=== PATIENT | female | born 1960 | race Caucasian/White ===

== ENCOUNTER → 2017-09-27 | Outpatient (CLI) | payer MEDICARE, MEDICAID ==
[~2017-09-27] MED LIST: AMIT-108 PO; AMIT75TA42 PO; AMLO-1 PO; ASPI-1471 PO; ASPI-715 PO; ATR10 PO; AZI250 PO; CEF300 PO; CELE-1 PO; CEP500 PO; DILT180C74 PO; DILT180T PO; DOC240 PO; FERR325T3 PO; GLUC1TAB PO; HCTZ25 PO; HYDR-2966 PO; HYDR200T77 PO; HYDR2TAB4 PO; HYDROXYCHLOROQUINE PO; INDO-23 PO; LEVE250T42 PO; LEVE500T73 PO; METO-257 PO; METO-259 PO; NAP250 PO; PRIM50TA PO; SULF500T48 PO; [UNRECOGNIZED DRUG - CODE] PO; [UNRECOGNIZED DRUG - OTHER]
--- NOTE | 2017-09-27 16:54 | RADIOLOGY IMAGING REPORT ---
FACILITY: [facility] - [place] PATIENT NAME: DERIK HOYOS : [id number] MR: [id number] V: [id number] EXAM DATE: [id number] ORDERING PHYSICIAN: RAQUEL ISRAEL TECHNOLOGIST: Minoo Talbot PROCEDURE:BILATERAL DIGITAL SCREENING MAMMOGRAM WITH CAD ASSISTED INTERPRETATION & 3D TOMOSYNTHESIS COMPARISON:Prior mammograms 08/03/16, 01/21/15, 11/26/13, 11/13/12, 10/21/11. INDICATIONS:SCREENING FINDINGS: Small amount of fibroglandular tissue is seen throughout the breasts. The parenchymal pattern has remained stable allowing for difference in mammographic technique & patient positioning. There is no evidence of malignant appearing mass, malignant appearing calcifications or other secondary sign of malignancy in either breast. DIAGNOSTIC CATEGORY 1--NEGATIVE. RECOMMENDATIONS: ROUTINE MAMMOGRAM AND CLINICAL EVALUATION. IMPRESSION: BIRADS 1: Negative. No significant abnormality is seen. Dictated by: Jeana Bartlett M.D. on 09/27/2017 at 14:33 Transcribed by: JANELL on 09/27/2017 at 14:43 Approved by: Jeana Bartlett M.D. on 09/27/2017 at 16:52 [facility]
== END ==
LOC: MAMO 09-26 01:23
PROVIDERS: ATTEND Family Medicine
DX: Z12.31 Encounter for screening mammogram for malignant neoplasm of breast (principal)
CPT/HCPCS: 77063; 77067

== ENCOUNTER 2018-05-03 06:52 | Emergency (ER) | payer MEDICARE, MEDICAID ==
[~2018-05-03 06:52] MED LIST changes: +HYDR2TAB74 PO; +PRED20TA6 PO
[2018-05-03 07:00] VITALS: BP 132/84
--- NOTE | 2018-05-03 07:09 | ER Report ---
History and Physical Time Seen By MD: 07:01 HPI/INDIO CHIEF COMPLAINT: Right shoulder pain HISTORY OF PRESENT ILLNESS: Patient is a 57-year-old female who has a history of rheumatoid as well as osteoarthritis. She was last seen in the emergency department here on February 06 for bilateral shoulder pain. Patient states that last night around 3 AM she woke up throbbing sensation to her right shoulder and decreased range of motion secondary to pain. She denies any new traumatic injuries or falls. She denies any recent use of the shoulder. Admit that she was doing physical therapy and that may have set this off. She denies any fevers or chills. She denies any redness to the affected joint. REVIEW OF SYSTEMS: Respiratory: No cough, no dyspnea. Cardiovascular: No chest pain, no palpitations. Gastrointestinal: No vomiting, no abdominal pain. Musculoskeletal: Right shoulder pain Allergies: Coded Allergies: carbamazepine (Verified Allergy, Severe, ANAPHYLAXIS, 05/03/18) divalproex sodium (Verified Allergy, Severe, ANAPHYLAXIS, 05/03/18) Penicillins (Verified Allergy, Mild, RASH, 05/03/18) naproxen (Verified Allergy, Unknown, ITCHING, 05/03/18) Home Meds Active Scripts Prednisone (PREDNISONE) 20 Mg Tablet, 40 MG PO QDAY for reduce shoulder inflammation, #9 2 By mouth daily for 3 days then 1 by mouth daily for 3 days Prov:LIOANGELA DO 02/06/18 Hydromorphone Hcl (DILAUDID) 2 Mg Tablet, 0.5-1 TAB PO Q4H PRN for 8, #10 Prov:ANGELA VACA DO 02/06/18 Reported Medications Aspirin (ASPIR 81) 81 Mg Tablet.dr, 81 MG PO QDAY, TAB 10/25/15 Amitriptyline Hcl (AMITRIPTYLINE HCL) 50 Mg Tablet, 50 MG PO QHS, #5 TAB 10/25/15 Hydroxychloroquine Sulfate (PLAQUENIL) 200 Mg Tablet, PO QDAY 11/08/14 Primidone (PRIMIDONE) 50 Mg Tab, 50 MG PO QDAY, TAB 11/08/14 Primidone (PRIMIDONE) 50 Mg Tab, 25 MG PO QAM, TAB 11/08/14 Glucosamine/Chondroitin A/Msm (RTONQFTRMAH-GODFNLLYFYB-KAW TB) 1 Each Tablet, 1 TAB PO QDAY 11/08/14 Diltiazem HCl (Diltiazem ER) 180 Mg Tab.er.24h, 1 CAP PO QDAY 11/08/14 Levetiracetam (LEVETIRACETAM) 500 Mg Tablet, 500 MG PO BID 11/08/14 Sulfasalazine (SULFAZINE) 500 Mg Tablet, 500 MG PO BID 11/08/14 Past Medical/Surgical History Past medical history significant for CVA with residual memory deficit as well as a history of seizures. She also has rheumatoid arthritis and fibromyalgia. She has a history of alcohol abuse. She takes medication for hypertension and elevated cholesterol but has no history of coronary artery disease or DC. She has been diagnosed with hepatitis C and has had prior interferon therapy. Hx Smoking: Yes Smoking Status: Current: Every Day Smoker Exposure to Second Hand Smoke?: Yes Hx Substance Use Disorder: Yes Hx Alcohol Use: Yes Constitutional Vital Sign - Last 24 Hours 05/03/18 07:00 Temp 98.6 Pulse 92 Resp 20 B/P (MAP) 132/84 Pulse Ox 90 O2 Delivery Room Air Physical Exam General Appearance: The patient is alert, has no immediate need for airway protection and no current signs of toxicity. Eyes: Pupils equal and round no injection. Respiratory: Chest is non tender, lungs are clear to auscultation. Cardiac: regular rate and rhythm Gastrointestinal: Abdomen is soft and non tender, no masses, bowel sounds normal. Musculoskeletal: Neck: Neck is supple and non tender. Extremities: Examination of the right shoulder shows some mild swelling compared to the left. There is no overlying erythema. Patient is able to flex and extend at the wrist and elbow. Patient has severe pain with abduction starting at around 30 of abduction. She is unable to raise the shoulder further Skin: No rashes or lesions. Medical Decision Making EKG/Imaging Imaging [place] [facility] [place] NAME: Neha Boggs : 1960 MR: [id number] V: [id number] EXAM DATE: ORDERING PHYSICIAN: ELÍAS NICHOLS TECHNOLOGIST: Location: [facility] Patient: Neha Boggs : 1960 Visit/Account:[id number] Date of Sevice: 05/03/2018 Technique: SHOULDER MIN 2 VIEWS RIGHT HISTORY: pain Comparison studies: None FINDINGS: There is no acute fracture. Marginal osteophytosis is noted within the glenohumeral joint. The alignment of the right shoulder is congruent. Soft tissues are unremarkable. IMPRESSION: 1. Degenerative findings as above. Report Dictated By: John Venutra DO at 05/03/2018 7:38 AM Report E-Signed By: John Ventura DO at 05/03/2018 7:39 AM WSN:[id number] ED Course/Re-evaluation ED Course 05/03/2018 7:09:01 am plan at this time will be to x-ray the right shoulder. We'll give her pain medications and referral to orthopedics. Patient prefers referral with orthopedics in [place]. Decision to Disposition Date: May 03, 2018 Decision to Disposition Time: 07:52 Depart Departure Latest Vital Signs Vital Signs Date Time Temp Pulse Resp B/P (MAP) Pulse Ox O2 Delivery O2 Flow Rate FiO2 05/03/18 07:00 98.6 92 20 132/84 90 Room Air Impression: Primary Impression: Arthritis Condition: Improved Disposition: HOME OR SELF-CARE Referrals: RAQUEL ISRAEL DO (PCP) New Scripts Prednisone (PREDNISONE) 20 Mg Tablet 20 MG PO QDAY, #5 TAB 0 Refills Prov: ELÍAS NICHOLS MD 05/03/18 Patient Instructions: Exercises for Internal and External Shoulder Rotation ( ED), Exercises for Shoulder Abduction and Adduction (ED), Exercises for Shoulder Abduction and Adduction (GEN), Shoulder Pain (ED) Additional Instructions: Schedule a follow up with Dr Henrik Whiting [facility] [address] [place] [address] ELÍAS NICHOLS MD May 03, 2018 07:09
[2018-05-03] MEDS ORDERED: APAP/HYDROCODONE 325/5 TAB PO ONE (07:10)
--- NOTE | 2018-05-03 07:43 | RADIOLOGY IMAGING REPORT ---
[place] [facility] [place]IENT NAME: Neha Boggs : 1960 MR: [id number] V: [id number] EXAM DATE: ORDERING PHYSICIAN: ELÍAS NICHOLS TECHNOLOGIST: Location: [facility] [place] Patient: Neha Boggs : 1960 Visit/Account:[id number] Date of Sevice: 05/03/2018 Technique: SHOULDER MIN 2 VIEWS RIGHT HISTORY: pain Comparison studies: None FINDINGS: There is no acute fracture. Marginal osteophytosis is noted within the glenohumeral joint. The alignment of the right shoulder is congruent. Soft tissues are unremarkable. IMPRESSION: 1. Degenerative findings as above. Report Dictated By: John Ventura DO at 05/03/2018 7:38 AM Report E-Signed By: John Ventuar DO at 05/03/2018 7:39 AM WSN:[id number]
[2018-05-03] MEDS ORDERED: TRAM-420 PO (07:52)
[2018-05-03] MEDS ORDERED: PRED20TA6 PO (07:52)
== END 2018-05-03 08:05 | disposition home or self-care (01) ==
LOC: ER 07:24
DX: M19.011 Primary osteoarthritis, right shoulder (principal)
CPT/HCPCS: 73030; 99283; A9270

== ENCOUNTER → 2018-05-21 | Outpatient (CLI) | payer MEDICARE, MEDICAID ==
[~2018-05-21] MED LIST changes: +TRAM-420 PO
--- NOTE | 2018-05-21 12:30 | RADIOLOGY IMAGING REPORT ---
FACILITY: [facility] PATIENT NAME: Neha Boggs : 1960 MR: [id number] V: [id number] EXAM DATE: ORDERING PHYSICIAN: RAQUEL ISRAEL TECHNOLOGIST: Location: [facility] [place] Patient: Neha Boggs : 1960 Visit/Account:[id number] Date of Sevice: 05/21/2018 MR SHOULDER RT W/O CONTRAST INDICATIONS: Evaluate degree of arthritis. DATE: 05/21/2018 11:00 AM TECHNIQUE: Multisequence multiplanar noncontrast MR imaging was performed of the right shoulder. COMPARISON: Shoulder radiographs May 03, 2018. FINDINGS: ROTATOR CUFF: The supraspinatus and infraspinatus tendons are thickened with increased signal in keep ing with moderate tendinopathy. There is both articular and bursal sided fraying. The anterior leadin g edge of the supraspinatus is torn. Subscapularis tendinopathy is moderate with some heterogeneity o f the cranial fibers. Teres minor remains intact. There is mild fatty infiltration of the subscapular is. BICEPS LABRAL COMPLEX: Long head biceps tendon is within the bicipital groove. The biceps tendon hernandez th is distended. The labrum is diffusely degenerative in appearance, especially anteriorly. OSSEOUS STRUCTURE: Glenohumeral degenerative findings are severe with [id number] articulation, exte nsive subchondral cystic change within the humeral head, and superior translation of the humeral head . Degenerative change is moderate at the AC joint. There is mild to moderate humeral head edema. Subc hondral cystic change is extensive within the glenoid centrally and inferiorly. MISCELLANEOUS: Small glenohumeral effusion likely communicates with the subacromial subdeltoid bursa through the suspected supraspinatus rent. IMPRESSION: 1. Severe glenohumeral degenerative change. 2. Suspected full-thickness rent/perforation of the supraspinatus leading edge anteriorly. 3. Moderate acromioclavicular degenerative findings. 4. Degenerative labrum. Report Dictated By: Cornell Sesay MD at 05/21/2018 12:18 PM Report E-Signed By: Cornell Sesay MD at 05/21/2018 12:25 PM WSN:[id number]
== END ==
LOC: MRI 00:54
PROVIDERS: ATTEND Family Medicine
DX: M19.011 Primary osteoarthritis, right shoulder (principal)